=== PATIENT | male | born 1975 | race Caucasian/White ===

== ENCOUNTER 2016-07-01 21:15 | Emergency (ER) | payer BC ==
--- NOTE | ~2016-07-01 | CR72 ---
[facility] A Service of [facility] RADIOLOGY TEXT RESULTS PATIENT: EBER VENTURA LOCATION: [facility] : 79 UNIT #: [id number] AGE: [address]: Antoine Zelaya MD SEX: M ORDER DR: [id number] [facility] [address] [place], [place] [address] [id number] E MR#: [id number] Acc #: [id number] NAME: EBER VENTURA : 1975 SEX: M STUDY DATE/TIME: 07/02/2016 0:57 UNIT: [facility] ROOM: STUDY DESCRIPTION: CR Chest Single View Portable Attending Physician: Nestor Zelaya M.D. Ordering Physician: Shon Hills M.D. MEDICAL IMAGING REPORT This report is preliminary unless electronic signature is present EXAM Portable chest, 07/02/2016 INDICATIONS PICC placement. Chest tube placement. FINDINGS Single portable AP view of the chest compared to 07/01/2016 at 20:28. The PICC terminates over the SVC. Right-sided chest tube remains in place. No pneumothorax. Right basilar airspace opacity/effusions similar to the prior study. IMPRESSION Right PICC terminates over the SVC. Dictated by... Herbert Alfaro M.D. THIS IS AN ELECTRONICALLY VERIFIED REPORT Herbert Alfaro M.D. at 07/03/2016 2:37 AM LEILA/ainsley TD: 07/02/2016 04:11 JOB #: [id number] MEDICAL IMAGING REPORT COPY
--- NOTE | ~2016-07-01 | CR63 ---
[facility] A Service of [facility] RADIOLOGY TEXT RESULTS PATIENT: EBER VENTURA LOCATION: [facility] : 79 UNIT #: [id number] AGE: [address]: Antoine Zelaya MD SEX: M ORDER DR: [id number] [facility] [address] [place], [place] [address] [id number] E MR#: [id number] Acc #: [id number] NAME: EBER VENTURA : 1975 SEX: M STUDY DATE/TIME: 07/01/2016 20:28 UNIT: [facility] ROOM: STUDY DESCRIPTION: CR Chest 2 View Attending Physician: Nestor Zelaya M.D. Ordering Physician: Ed Cecil Christianson M.D. Primary Care Physician: No Primary Care Physician MEDICAL IMAGING REPORT This report is preliminary unless electronic signature is present EXAM 2 views chest HISTORY Short of air. PICC line came out, right chest tube duration 2-3 weeks. FINDINGS 2 AP and 2 lateral views of the chest are presented. Comparison 06/19/2016. The right basilar pleural drain is unchanged. Cardiomediastinal silhouette stable. Volume loss in the inferior right lung with patchy and linear densities at the right lung base. Stable to minimally improved compared to prior study. This may reflect components of atelectasis and/or residual pneumonia. If the patient has undergone intervention in this region, some postoperative change may be present. The remainder of the right lung is clear and there is no pneumothorax. Slight blunting of the right lateral costophrenic sulcus may reflect continued trace effusion or postoperative change. The left lung is well inflated and clear. No acute bony abnormality. Dictated by... Dionte Pastrana M.D. THIS IS AN ELECTRONICALLY VERIFIED REPORT Dionte Pastrana M.D. at 07/03/2016 6:23 PM SOHEILA/rafal TD: 07/02/2016 00:58 JOB #: [id number] MEDICAL IMAGING REPORT COPY
[2016-07-01 20:48] LABS: BASOPHIL# 0.1 X10e3 (0-0.3); BASOPHIL% 0.8 % (0-2.5); EOSINOPHIL# 0.2 X10e3 (0-0.7); EOSINOPHIL% 2.8 % (0.0-7.0); HEMATOCRIT 31.4 % (38.0-50.0); HEMOGLOBIN 10.3 gm/dL (13.0-16.0); LYMPHOCYTE% 28.3 % (17.0-45.0); MEAN CELL VOLUME 82.1 FL (83-96); MEAN CORPUSCULAR HGB CONC 32.8 g/dL (30-36); MEAN PLATELET VOLUME 6.6 FL (6.5-11.5); MONOCYTE# 1.4 X10e3 (0-1.0); MONOCYTE% 19.7 % (3.0-12.0); NEUTROPHIL# 3.5 X10e3 (1.5-7.1); NEUTROPHIL% 48.4 % (40-75); PLATELET COUNT 231 X10e3 (140-420); RED BLOOD COUNT 3.83 X10e (3.90-5.60); RED CELL DISTRIBUTION WIDTH 20.3 % (11.0-15.5); WHITE BLOOD COUNT 7.2 X10e3 (4.0-10.5)
[2016-07-01 20:49] LABS: DIFF IND NO
[~2016-07-01 21:15] MED LIST: AMOXICILLIN875 MG PO; DOCUSATE SODIU100 MG PO; FERROUS GLUCON324 MG PO; IBUPROFEN800 MG PO; LEVAQUIN750 M1 PO; ROXICODONE5 M1 PO; TRAZODONE PO; UNASYN IV; ZYVOX600 MG PO
== END 2016-07-02 01:30 | disposition home or self-care (01) ==
LOC: CED 21:15
PROVIDERS: Emergency Medicine
DX: Z45.2 Encounter for adjustment and management of vascular access device (principal)
CPT/HCPCS: 36584; 71010; 71020; 82947; 85025; 99283